=== PATIENT | female | born 2000 | race Caucasian/White ===

== ENCOUNTER 2018-02-17 12:15 | Emergency (ER) | payer MEDICAID ==
[2018-02-17 14:49] VITALS: BP 106/69
--- NOTE | 2018-02-17 15:32 | UC ---
Skin Complaint HPI - HPI Summary HPI Summary: Pt c/o razor burn on labia from this past Wed 02/14. Was seen by PCP at [facility] and dx w/ razor burn- had STD testing and yeast swab done. Was told to apply otc ointment to area. States sores on labia are more painful and draining now. States test results not back yet. Had unprotected intercourse last weekend. - History of Current Complaint Chief Complaint: UCSkin Stated Complaint: SKIN CONCERN - PERSONAL Hx Obtained From: Patient Hx Last Menstrual Period: IUD ?: No Onset/Duration: Sudden Onset, Lasting Days Skin Exposure Onset/Duration: Days Ago Timing: Constant Onset Severity: Severe Current Severity: Severe Pain Intensity: 6 Location: Generalized - genital area Character: Redness, Raised, Painful Aggravating Factor(s): Clothing, Humidity, Touch Alleviating Factor(s): Nothing Associated Signs & Symptoms: Positive: Rash - Allergy/Home Medications Allergies/Adverse Reactions: Allergies Allergy/AdvReac Type Severity Reaction Status Date / Time No Known Allergies Allergy Verified 02/17/18 14:40 Home Medications: Home Medications FLUoxetine CAP* [Prozac CAP*] 1 tab DAILY 02/17/18 [History Confirmed 02/17/18] Levonorgestrel (Iud) [Kyleena IUD] 1 implant ONCE 02/17/18 [History Confirmed ] hydrOXYzine HCL TAB* [Atarax 25 MG TAB*] 1 tab TID 02/17/18 [History Confirmed 02/17/18] PMH/Surg Hx/FS Hx/Imm Hx Previously Healthy: Yes - Surgical History Surgical History: Yes Surgery Procedure, Year, and Place: Appendix - Family History Known Family History: Negative: Cardiac Disease, Hypertension - Social History Alcohol Use: Weekly Substance Use Type: Marijuana Substance Use Comment - Amount & Last Used: occasional; 5 days ago Smoking Status (MU): Light Every Day Tobacco Smoker Type: eCigarettes Review of Systems All Other Systems Reviewed And Are Negative: Yes Constitutional: Positive: Negative Skin: Positive: Rash Eyes: Positive: Negative ENT: Positive: Negative Respiratory: Positive: Negative Cardiovascular: Positive: Negative Gastrointestinal: Positive: Negative Genitourinary: Positive: Dysuria, Vaginal/Penile Discharge, Vaginal/Penile Pain , Vaginal/Penile Tenderness, Ulceration/Lesion Motor: Positive: Negative Neurovascular: Positive: Negative Musculoskeletal: Positive: Negative Neurological: Positive: Negative Psychological: Positive: Negative Is Patient Immunocompromised?: No Physical Exam Triage Information Reviewed: Yes Appearance: Well-Appearing, Well-Nourished, Pain Distress Vital Signs: Initial Vital Signs Temp 98.3 F 02/17/18 14:41 Pulse 83 02/17/18 14:41 Resp 16 02/17/18 14:41 BP 106/69 02/17/18 14:41 Pulse Ox 99 02/17/18 14:41 Vital Signs Reviewed: Yes Eye Exam: Normal ENT Exam: Normal ENT: Positive: Pharyngeal erythema, TMs normal Dental Exam: Normal Neck exam: Normal Neck: Positive: Supple, Nontender, No Lymphadenopathy Respiratory Exam: Normal Respiratory: Positive: Chest non-tender, Lungs clear, Normal breath sounds Cardiovascular Exam: Normal Cardiovascular: Positive: RRR, No Murmur, Pulses Normal Abdominal Exam: Normal Abdomen Description: Positive: Nontender, No Organomegaly, Soft Bowel Sounds: Positive: Present Pelvic Exam: Positive: Lesions - blisters to both sides of labia, all around the vaginal opening. folliculitis is present all over the pubic area as well. whitish discharge noted from the vaginal opening, Other - deferred internal exam , did recently have exam aat [facility], tested for GC/CL. Musculoskeletal Exam: Normal Neurological Exam: Normal Psychological Exam: Normal Skin: Positive: Rashes Course/Dx - Course Course Of Treatment: hx obtained, exam performed ,meds reviewed, external pelvic exam performed and deferred internal exam as she had one done just a few days ago. the pain with urination, sitting and clothing touching the area has increase over the past few days. While charting, the pharmacy called and advised that patient already has a prescription for acyclovir that was prescribed by her PCP. Herpes swab obtained, treated for folliculitis and yeast infection - Differential Diagnoses - Skin Complaint Differential Diagnoses: Abscess, Cellulitis, Contact Dermatitis, Impetigo, MRSA - Diagnoses Provider Diagnosis: Herpetic lesion, Folliculitis, Vaginitis Discharge - Sign-Out/Discharge Documenting (check all that apply): Patient Departure All imaging exams completed and their final reports reviewed: No Studies - Discharge Plan Condition: Stable Disposition: HOME Prescriptions: Cephalexin CAP* [Keflex CAP*] 500 mg PO BID #14 cap Fluconazole 150 MG TAB* [Diflucan 150 MG TAB*] 150 mg PO WEEKLY #2 tablet Patient Education Materials: Genital Herpes Simplex (ED), Folliculitis (ED) Referrals: Iva Bianchi MD [Primary Care Provider] - Additional Instructions: 1. take the medication as prescribed. 2. Warm bath soaks 3. Avoid sexual intercourse until healed 4. Always practice safe sex!!!!! 5. [facility] and your test results today should be availabe in the next 3-4 days. - Billing Disposition and Condition Condition: STABLE Disposition: Home - Attestation Statements Provider Attestation: Per institutional requirements, I have reviewed the chart, however, I was not consulted specifically or made aware of this patient by the midlevel provider. I did not personally evaluate, interact with , or disposition this patient.
[2018-02-21 20:59] LABS: HSV 1 PCR Positive (Negative); Herpes Source labia
== END 2018-02-17 15:55 | disposition home or self-care (01) ==
LOC: UCCORT 12:15
DX: A60.04 Herpesviral vulvovaginitis (principal); L73.9 Follicular disorder, unspecified; N76.0 Acute vaginitis; F17.210 Nicotine dependence, cigarettes, uncomplicated
CPT/HCPCS: 87529; 99212; G0463

== ENCOUNTER 2018-06-19 17:21 | Emergency (ER) | payer OTHER ==
[2018-06-19 18:23] VITALS: BP 113/67
--- NOTE | 2018-06-19 18:39 | ED ---
Respiratory - HPI Summary HPI Summary: 17 yr old female with the complaint of runny nose, sore throat, coughing. Her most severe symptoms is her cough which she seeks relief for. She has had four days of symptoms. She denies CP, SOB. 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 She has not had a recorded temperature. - History of Current Complaint Chief Complaint: UCGeneralIllness Stated Complaint: COUGH,SORE THROAT,EAR PAIN Time Seen by Provider: 06/19/18 18:27 Pain Intensity: 0 - Allergy/Home Medications Allergies/Adverse Reactions: Allergies Allergy/AdvReac Type Severity Reaction Status Date / Time No Known Allergies Allergy Verified 06/19/18 18:17 Home Medications: Home Medications guaiFENesin LIQ* [Robitussin*] 10 ml PO Q4H PRN 06/19/18 [History Confirmed ] PMH/Surg Hx/FS Hx/Imm Hx - Surgical History Surgery Procedure, Year, and Place: Appendix Infectious Disease History: No Infectious Disease History: Denies: Traveled Outside the in Last 30 Days - Family History Known Family History: Negative: Cardiac Disease, Hypertension - Social History Occupation: Employed Full-time Lives: With Family Alcohol Use: Occasionally Substance Use Type: Reports: None Substance Use Comment - Amount & Last Used: occasional; 5 days ago Smoking Status (MU): Light Every Day Tobacco Smoker Type: eCigarettes Amount Used/How Often: vape pen Review of Systems Positive: Chills, Fatigue Positive: Sore Throat, Nasal Discharge Positive: Cough All Other Systems Reviewed And Are Negative: Yes Physical Exam Triage Information Reviewed: Yes Vital Signs On Initial Exam: Initial Vitals Temp Pulse Resp BP Pulse Ox 97.9 F 95 18 113/67 100 06/19/18 18:18 06/19/18 18:18 06/19/18 18:18 06/19/18 18:18 06/19/18 18:18 Vital Signs Reviewed: Yes Appearance: Positive: Well-Appearing, No Pain Distress Skin: Positive: Warm, Skin Color Reflects Adequate Perfusion Head/Face: Positive: Normal Head/Face Inspection Eyes: Positive: EOMI, ROSSY ENT: Positive: Normal ENT inspection, Pharyngeal erythema, Nasal congestion, Nasal drainage, TMs normal Neck: Positive: Supple, Nontender Respiratory/Lung Sounds: Positive: Clear to Auscultation, Breath Sounds Present Cardiovascular: Positive: RRR. Negative: Murmur Abdomen Description: Negative: Distended Musculoskeletal: Positive: Strength/ROM Intact Neurological: Positive: Sensory/Motor Intact, Alert, Oriented to Person Place, Time, CN Intact II-III Psychiatric: Positive: Normal - Geovanna Coma Scale Best Eye Response: 4 - Spontaneous Best Motor Response: 6 - Obeys Commands Best Verbal Response: 5 - Oriented Coma Scale Total: 15 Diagnostics - Vital Signs Vital Signs Temp Pulse Resp BP Pulse Ox 06/19/18 18:18 97.9 F 95 18 113/67 100 - Laboratory Lab Statement: Any lab studies that have been ordered have been reviewed, and results considered in the medical decision making process. Disposition - Course Course Of Treatment: 17 yr old with URI. DC home. - Diagnoses Provider Diagnoses: Upper respiratory infection Discharge - Sign-Out/Discharge Documenting (check all that apply): Patient Departure All imaging exams completed and their final reports reviewed: No Studies - Discharge Plan Condition: Good Disposition: HOME Patient Education Materials: Upper Respiratory Infection (ED) Referrals: Iva Bianchi MD [Primary Care Provider] - 2 Days - Billing Disposition and Condition Condition: GOOD Disposition: Home
== END 2018-06-19 18:47 | disposition home or self-care (01) ==
LOC: UCCORT 17:21
DX: J06.9 Acute upper respiratory infection, unspecified (principal); F17.290 Nicotine dependence, other tobacco product, uncomplicated
CPT/HCPCS: 99212; G0463

== ENCOUNTER 2018-10-02 18:40 | Emergency (ER) | payer OTHER ==
[2018-10-02 19:31] VITALS: BP 106/65
--- NOTE | 2018-10-02 19:54 | UC ---
General HPI - HPI Summary HPI Summary: per triage, swollen lymph node right side of neck noticed 10/01/18, does not feel sick; brother recently dx with cornell sarcoma [ End ] PT NOTICED A SWOLLEN LYMPH NODE ON BACK OF R SCALP AND BACK OF R NECK LAST PM. BOTH ARE SORE TO TOUCH. SCALP WAS ITCHING. NO F/C'S, FATIGUE, WEIGHT LOSS, SORE THROAT, EAR PAIN OR URI. - History of Current Complaint Chief Complaint: UCGeneralIllness Stated Complaint: SWOLLEN LYMPHNODE Time Seen by Provider: 10/02/18 19:37 Hx Obtained From: Patient Hx Last Menstrual Period: kyleena Timing: Constant Pain Intensity: 4 - Allergy/Home Medications Allergies/Adverse Reactions: Allergies Allergy/AdvReac Type Severity Reaction Status Date / Time No Known Allergies Allergy Verified 10/02/18 19:31 Home Medications: Home Medications Anti-Anxiety Med 10/02/18 [History] PMH/Surg Hx/FS Hx/Imm Hx Psychological History: Anxiety - Surgical History Surgical History: Yes Surgery Procedure, Year, and Place: Appendix - Family History Known Family History: Positive: Other - CORNELL SARCOMA(BROTHER) Negative: Cardiac Disease, Hypertension - Social History Lives: With Family Alcohol Use: Weekly Alcohol Amount: 4 nights a week Substance Use Type: None Substance Use Comment - Amount & Last Used: occasional Smoking Status (MU): Former Smoker Type: eCigarettes Amount Used/How Often: vape pen Review of Systems All Other Systems Reviewed And Are Negative: Yes Constitutional: Negative: Fever, Chills, Fatigue Skin: Negative: Rash ENT: Negative: Sore Throat, Ear Ache, Nasal Discharge Motor: Negative: Weakness Neurological: Negative: Headache Physical Exam Triage Information Reviewed: Yes Appearance: Well-Appearing Vital Signs: Initial Vital Signs Temp 98.5 F 10/02/18 19:27 Pulse 73 10/02/18 19:27 Resp 15 10/02/18 19:27 BP 106/65 10/02/18 19:27 Pulse Ox 99 10/02/18 19:27 Vital Signs Reviewed: Yes Eyes: Positive: Conjunctiva Clear ENT: Positive: Pharynx normal, TMs normal, Other - Small area or erythema behind R ear with slight yellowing center but not fluctuant.. Negative: Nasal congestion, Nasal drainage Neck: Positive: Supple, Tenderness @ - R posterior cervical chain lymphnode( single) that is mildly enlarged. Respiratory: Positive: Lungs clear, Normal breath sounds, No respiratory distress Cardiovascular: Positive: RRR, No Murmur Abdomen Description: Positive: Nontender, No Organomegaly, Soft. Negative: Splenomegaly Bowel Sounds: Positive: Present Musculoskeletal: Positive: ROM Intact Neurological: Positive: Alert Psychological: Positive: Age Appropriate Behavior Skin Exam: Normal, Other - Single R occipital lyphnode that is tender and mildly enlarged. No scalp lesions. No additional axillary, epitrochlear or inguinal adenoapthy. Skin: Negative: Rashes Course/Dx - Differential Dx - Multi-Symptom Differential Diagnoses: Other - given pimle type spot behind R ear and tender adenoapthy will tx with keflex for possible skin infection. need for close f/u pcp and recheck stressed to pt at time of discharge. pt advised will need additonal workup if adenopathy does not resolve. - Diagnoses Provider Diagnosis: Occipital lymphadenopathy, Posterior cervical lymphadenopathy Discharge - Sign-Out/Discharge Documenting (check all that apply): Patient Departure All imaging exams completed and their final reports reviewed: No Studies - Discharge Plan Condition: Stable Disposition: HOME Prescriptions: Cephalexin CAP* [Keflex CAP*] 500 mg PO TID 7 Days #21 cap Patient Education Materials: Lymphadenopathy (ED) Referrals: Iva Bianchi MD [Primary Care Provider] - 7 Days Additional Instructions: FOLLOW UP SOONER FOR ANY WORSENING. - Billing Disposition and Condition Condition: STABLE Disposition: Home
== END 2018-10-02 20:01 | disposition home or self-care (01) ==
LOC: UCCORT 18:40
DX: R59.1 Generalized enlarged lymph nodes (principal); Z87.891 Personal history of nicotine dependence
CPT/HCPCS: 99212; G0463

== ENCOUNTER 2019-03-08 13:07 | Emergency (ER) | payer OTHER ==
--- OUTSIDE RECORDS SUMMARY | 2019-03-08 13:20 | XMS REPORT | Continuity of Care Document ---
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 [phone] Medicine Problems Description No Information Available Social History Type Date Description Comments Sex Unknown Allergies, Adverse Reactions, Alerts Active Allergies Reaction Severity Comments Date NKDA 10/09/2017 No Latex Allergy 10/09/2017 Medications Active Medications SIG Qnty Indications Ordering Provider Date Prednisone 40mg daily x 5 10tabs J20.9 Tato 12/04/2018 20mg Tablets days MD Mona Albuterol Sulfate HFA 2 puffs every 6 1units J20.9 Tato 12/04/2018 hours MD Mona 108(90Base) mcg/Act Aerosol History Medications No Active Medications Unknown 12/04/2018 - 12/04/2018 Immunizations Description No Information Available Vital Signs Date Vital Result Comment 12/04/2018 7:34pm Heart Rate 84 /min BP Systolic 108 mmHg BP Diastolic 64 mmHg Respiratory Rate 16 /min Body Temperature 98.0 F O2 % BldC Oximetry 97 % room air 10/09/2017 9:22am Height 64 inches Weight 121.00 lb Heart Rate 60 /min BP Systolic 116 mmHg BP Diastolic 62 mmHg Body Temperature 97.3 F BMI (Body Mass Index) 20.8 kg/m2 Height Percentile 46 % Weight Percentile 39th Results Description No Information Available Procedures Description No Information Available Medical Devices Description No Information Available Encounters Type Date Location Provider Dx Diagnosis Office Visit 12/17/2018 [facility] YAHAIRA Briggs J20.9 Acute bronchitis, 7:26p Walk-in at [place] unspecified Drugs Assessments Date Code Description Provider 12/17/2018 J20.9 Bronchitis YAHAIRA Briggs 12/04/2018 J20.9 Bronchitis YAHAIRA Briggs Plan of Treatment 12/17/2018 - YAHAIRA BriggsJ20.9 BronchitisComments:FOLLOW UP WITH PRIMARY CARE IN 4-5 DAYS OR SOONER IF WORSE. Functional Status Description No Information Available Mental Status Description No Information Available Referrals Description No Information Available
--- OUTSIDE RECORDS SUMMARY | 2019-03-08 13:20 | XMS REPORT | Continuity of Care Document ---
:2000 External Reference #:[id number] Author Name YAHAIRA Briggs Address 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 Functional Status Description No Information Available Mental Status Description No Information Available Referrals Description No Information Available
[2019-03-08 13:31] VITALS: BP 105/68
--- NOTE | 2019-03-08 13:51 | UC ---
Abdominal Pain Female HPI - HPI Summary HPI Summary: 18-year-old female presents with diarrhea. Patient recently went to [place] with 2 friends and the ulna has diarrhea. Her diarrhea started approximately 4- 5 days ago. She is having numerous loose stools per day. No medication prior to arrival. She's had some abdominal cramping. No fevers or chills. She's had some nausea with one episode of emesis yesterday. She is trying to drink her fluids that she can. She needs a note for work for today. Exertion worsened symptoms. Rest of her symptoms. - History of Current Complaint Chief Complaint: UCGI Stated Complaint: VOMITING SWEATS Time Seen by Provider: 03/08/19 13:31 Hx Obtained From: Patient Hx Last Menstrual Period: kyleena Pain Intensity: 3 Allergies/Adverse Reactions: Allergies Allergy/AdvReac Type Severity Reaction Status Date / Time No Known Allergies Allergy Verified 03/08/19 13:30 PMH/Surg Hx/FS Hx/Imm Hx Previously Healthy: Yes - Surgical History Surgical History: Yes Surgery Procedure, Year, and Place: Appendix - Family History Known Family History: Positive: Other - ROBLEDO SARCOMA(BROTHER) Negative: Cardiac Disease, Hypertension - Social History Alcohol Use: Weekly Alcohol Amount: 4 nights a week Substance Use Type: None Substance Use Comment - Amount & Last Used: occasional Smoking Status (MU): Former Smoker Type: eCigarettes Amount Used/How Often: vape pen When Did the Patient Quit Smoking/Using Tobacco: 1 week ago Review of Systems All Other Systems Reviewed And Are Negative: Yes Gastrointestinal: Positive: Abdominal Pain, Vomiting, Diarrhea, Nausea Is Patient Immunocompromised?: No Physical Exam Appearance: Well-Appearing, No Pain Distress, Well-Nourished Vital Signs: Initial Vital Signs Temp 98.7 F 03/08/19 13:19 Pulse 69 03/08/19 13:19 Resp 18 03/08/19 13:19 BP 105/68 03/08/19 13:19 Pulse Ox 100 03/08/19 13:19 Vital Signs Reviewed: Yes Eye Exam: Normal ENT Exam: Normal Neck exam: Normal Neck: Positive: 1 Respiratory Exam: Normal Cardiovascular Exam: Normal Abdominal Exam: Normal Abdomen Description: Positive: Nontender, No Organomegaly, Soft. Negative: Bruit, CVA Tenderness (R), CVA Tenderness (L), Distended, Guarding Musculoskeletal Exam: Normal Neurological Exam: Normal Psychological Exam: Normal Skin Exam: Normal Abd Pain Female Course/Dx - Course Course Of Treatment: Patient with likely traveler's diarrhea at this time. No medication prior to arrival. Advised to increase fluid intake and also can use Imodium. If symptoms are not improved and at that time using azithromycin. If after that duration time the symptoms are not improved she is aware to seek medical attention for primary care doctor or the emergency room. Patient is aware and agreeable with plan as well as the side effects of medication. - Differential Dx/Diagnosis Provider Diagnosis: Travelers' diarrhea Discharge ED - Sign-Out/Discharge Documenting (check all that apply): Patient Departure All imaging exams completed and their final reports reviewed: No Studies - Discharge Plan Condition: Good Disposition: HOME Prescriptions: Azithromycin 500 mg PO ONCE #2 tablet Loperamide CAP* [Imodium CAP*] 2 mg PO SEE INSTRUCTIONS #20 cap Patient Education Materials: Traveler's Diarrhea (ED) Forms: *Work Release Referrals: Iva Bianchi MD [Primary Care Provider] - 3 Days - Billing Disposition and Condition Condition: GOOD Disposition: Home
== END 2019-03-08 14:02 | disposition home or self-care (01) ==
LOC: UCCORT 13:07
DX: R19.7 Diarrhea, unspecified (principal); R10.9 Unspecified abdominal pain; R11.2 Nausea with vomiting, unspecified; Z87.891 Personal history of nicotine dependence
CPT/HCPCS: 99212; G0463